=== PATIENT | male | born 1980 | race Caucasian/White ===

== ENCOUNTER 2017-03-12 05:49 | Day surgery (SDC) | payer OTHER ==
[~2017-03-12] VITALS: Ht 165.1 cm; Wt 71.2 kg
--- NOTE | 2017-03-12 06:50 | NUR ---
[address] lua as pt states he doesnt have ride home and is homeless. states to get pt ready for surgery. was also told pt plan is to walk to [place].
--- NOTE | 2017-03-12 08:49 | NUR ---
[facility]17 0849 [facility] DE[facility] TO 6L VIA MASK.
[2017-03-12] MEDS ORDERED: NORCO 10-325 T1 EACH PO (09:46)
--- NOTE | 2017-03-12 09:52 | NUR ---
ADRIANE BALDWIN HAD REQUESTED MY ASSISTANCE IN HELPING TO SECURE A RIDE FOR PT FOLLOWING SURGERY. I CONTACTED HIS [facility] [place]. THEY KNEW HE WAS HAVING SURGERY AND WERE WILLING TO TO COME AND GIVE HIM A RIDE. GAVE PHONE # TO ADRIANE SANTIAGO. MET WITH PT FOLLOWING SURGERY. TOLD HIM WE HAD ARRANGED A RIDE FOR HIM, AND HE THANKED ME. STILL SOMEWHAT SPACEY FROM ANESTHESIA, PT SAID HE WOULD LIKE ME TO PRAY FOR HIM, WHICH I DID. GOD BLESS HIM, AND I WILL BE AVAILABLE IF NEEDED
--- NOTE | 2017-03-12 10:04 | NUR ---
0920: PATIENT BACK IN DAY SURGERY ROOM FROM PACU. PATIENT RESTLESS IN BED. PATIENT ANSWERS MOST QUESTIONS APPROPRIATELY, BUT WHEN TALKING SAYS THINGS THAT DO NOT MAKE SENSE. WHEN ASKED ABOUT PAIN, PATIENT STATES "IT IS NOT REALLY PAIN, BUT IT IS ANNOYING". RIGHT GROIN DRESSING CDI. ICE PACK TO RIGHT GROIN. IV SITE WNL. SCDs ON. GIVEN ICE WATER AND JELLO. INSTRUCTED NOT TO GET OOB BY HIMSELF. CALL LIGHT WITHIN REACH.
--- NOTE | 2017-03-12 10:17 | NUR ---
[facility] PA[facility] MEDICINE WORKING RATES PAIN 2/10. AMB TO [facility]. WANTS SOME SOUP AND ORDERED.
--- NOTE | 2017-03-12 10:28 | NUR ---
REQ 2ND PILL. JOE LANTIGUA CALLED TO COME GET HIM. JOE BAKER MADE BY [facility].
--- NOTE | 2017-03-12 10:51 | NUR ---
PT TOOK IV OUT HIMSELF. "DIDNT WANT TO WAIT" RATES PAIN 06/23. GETTING DRESSED. HAS VOIDED ATE SOUP, JELLO DRANK WATER AND COFFEE.
--- NOTE | 2017-03-12 12:06 | NUR ---
ATE SOUP AND SANDWICH. RIDE WAS CALLED A SECOND TIME. JUST GOT HERE 1200 TO TAKE PT HOME. AMB WELL. PAIN RATING 2/10.
--- NOTE | 2017-03-13 15:20 | OR ---
[facility] [address], [place] [address] Signed DATE OF PROCEDURE: 03/12/17 PREOPERATIVE DIAGNOSIS: Reducible right inguinal hernia. POSTOPERATIVE DIAGNOSIS: Reducible right indirect inguinal hernia. PROCEDURE PERFORMED Right Román onlay mesh inguinal herniorrhaphy. ESTIMATED BLOOD LOSS: None. INDICATIONS Shayna is a 36-year-old gentleman who has been homeless and on methamphetamines. He ended up at the [facility]. He has been having trouble for the last year and half with right inguinal hernia. He said the last 4 months, it has gotten worse. He said it is starting to drop down into his scrotum. He says it is always painful, but it is worse with activities. It has not affected his bowel movements. He had been asked to see me with respect to the above. In the office, he clearly has a right inguinal hernia. I gave him a booklet on hernias, we looked at that together. He understands the nature of an inguinal hernia. He understands the difference between the primary suture repair and a mesh repair. He also understands the expected intraop and postop course. There is risk of surgery including, but not limited to bleeding, infection, scarring, change in contour the skin, damage to the nerves, ischemic orchitis, recurrent hernias, and chronic pain. He had expressed understanding wished to proceed. DESCRIPTION OF PROCEDURE I met with Shayna in preop area and we both agreed it was the right groin. We marked that right groin appropriately. He was then taken into the operating room and placed in a supine position under g eneral endotracheal tube anesthesia. He was given preoperative antibiotics along with subcutaneous heparin. SCDs were utilized. He was then prepped and draped in the usual sterile fashion. A standard oblique incision was made in the right groin and carried down to the tissue bluntly and with the cautery. The external oblique fascia was opened along its length and developed medially and laterally. The cord structures were then elevated to the level of pubic tubercle. The direct space remained intact. We inspected the cord structures on the anteromedial side next to the deep ring. We uncovered his moderately large indirect inguinal hernia sac. We carefully the inguinal hernia sac from the surrounding cord structures with the help of the DeBakey forceps. The sac had been opened to ensure all contents had been reduced. The neck of the hernia sac was doubly ligated with 2-0 PDS suture. The distal portion of hernia sac was amputated and passed off the field. After this, the piece of flat Prolene mesh was cut to fit his groin and a slit was made in the mesh to accommodate the cord structures at the level of deep ring. Prolene suture was used to hold the mesh in both Electronically Signed By: RANDA BROWN MD 03/13/17 1520 PATIENT NAME: SHAYNA NOEL OPERATIVE REPORT DATE OF : 76 PHYSICIAN: RANDA BROWN MD REPORT #: [id number] REPORT IS CONFIDENTIAL AND NOT TO BE RELEASED WITHOUT AUTHORIZATION [address] [address] Signed laterally and medially. There was no undue tension of the mesh around the cord structures at the level of deep ring. After this, the wound was infiltrated with local anesthetic. The wound was then irrigated and suctioned out until clear. The external oblique fascia was closed over the repair with a running 2-0 PDS suture. Aye's fascia was then reapproximated with running 3-0 Monocryl suture. The dermis was reapproximated with interrupted 3-0 subcuticular Monocryl sutures. The skin edges were reapproximated a running 6-0 fast absorbing plain gut suture. Dry gauze and tape were then applied. Shayna was awakened from his anesthesia, extubated in the O R, taken to recovery room in stable condition. MD MIKAELA North/Gianna /[id number] cc: DANILO Louis Electronically Signed By: RANDA BROWN MD 03/13/17 1520 PATIENT NAME: SHAYNA NOEL OPERATIVE REPORT DATE OF : 76 PHYSICIAN: RANDA BROWN MD REPORT #: [id number] REPORT IS CONFIDENTIAL AND NOT TO BE RELEASED WITHOUT AUTHORIZATION
== END 2017-03-12 12:40 | disposition home or self-care (01) ==
LOC: DS 05:49
PROVIDERS: Colon & Rectal Surgery
PROC: 0YU50JZ Supplement Right Inguinal Region with Synthetic Substitute, Open Approach (ICD-10-PCS; principal; 2017-03-12 06:45)
DX: K40.90 Unilateral inguinal hernia, without obstruction or gangrene, not specified as recurrent (principal); Z86.14 Personal history of Methicillin resistant Staphylococcus aureus infection; Z87.891 Personal history of nicotine dependence
CPT/HCPCS: 00830; C1781; J0330; J0690; J1100; J1644; J1885; J2250; J2405; J2704; J3010; J7120